=== PATIENT | male | born 1960 | race Caucasian/White ===

== ENCOUNTER 2020-04-14 07:54 | Outpatient (REF) | payer OTHER, SELFPAY | END 2020-04-14 07:55 | disposition home or self-care (01) | LOC: HO.LAB 07:54 | PROVIDERS: Visit Provider Internal Medicine | DX: Z20.822 Contact with and (suspected) exposure to COVID-19 (principal) | CPT/HCPCS: 36415; C9803; U0003 ==

== ENCOUNTER 2022-01-13 07:35 | Emergency (ER) | payer OTHER, SELFPAY ==
[2022-01-13 08:31] VITALS: BP 149/81; PULSE 106; RESP 20; TEMP 36.2; O2SAT 96; BMI 31.7
[2022-01-13 08:42] LABS: MANUAL DIFF FLAG NO
[2022-01-13 08:44] LABS: Basophils Percent Auto 0.5 % (0-2); Eosinophils Absolute Auto 0.1 X10*3/uL (0.0-0.4); Eosinophils Percent Auto 1.6 % (0-4); Hematocrit 41.6 % (42.0-52.0); Hemoglobin 14.6 g/dl (14.0-18.0); Imm Gran Abs Auto 0.02 X10*3/uL (0.00-0.03); Imm Gran Pct Auto 0.3 % (0.0-0.4); Lymphocytes Absolute Auto 1.7 X10*3/uL (1.2-4.9); Lymphocytes Percent Auto 20.7 % (20-40); Mean Corpuscular HGB Conc 35.1 g/dl (31.0-36.0); Mean Corpuscular Hemoglobin 29.4 pg (27.0-33.0); Mean Corpuscular Volume 83.7 fL (80.0-98.0); Mean Platelet Volume 10.5 fL (9.4-12.4); Monocytes Absolute Auto 0.5 X10*3/uL (0.1-1.2); Monocytes Percent Auto 6.5 % (2-11); Neutrophils Absolute Auto 5.6 x10*3/uL (2.0-8.3); Neutrophils Percent Auto 70.4 % (45-73); Platelet Count 212 X10*3/uL (160-400); Red Blood Count 4.97 X10*6/uL (4.60-5.80); Red Cell Distribution Width 11.7 % (11.0-16.0)
[2022-01-13 09:10] LABS: Alanine Aminotransferase 17 U/L (0-40); Albumin Level 4.2 g/dL (3.5-5.0); Alkaline Phosphatase 104 U/L (39-117); Anion Gap 17 (12-20); Aspartate Amino Transferase 13 U/L (5-37); Bilirubin Direct 0.2 mg/dL (0.0-0.5); Bilirubin Total 0.6 mg/dL (0.0-1.0); Blood Urea Nitrogen 13 mg/dL (9-16); Calcium 9.4 mg/dL (8.4-10.2); Carbon Dioxide 24 mmol/L (22-29); Chloride 99 mmol/L (96-108); Estimated Glomerular Filt Rate > 60; Glucose Random 372 mg/dL (60-115); Lipase 112 U/L (8-78); Potassium 4.8 mmol/L (3.3-5.1); Sodium 135 mmol/L (135-145)
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
--- OUTSIDE RECORDS SUMMARY | 2022-01-13 15:22 | XMS_ITS | Continuity of Care Document ---
:1960 Author Organization [facility] Address [address] [place] [address]- Care Team Providers Name Role Phone Angela Suero MD Primary Care Physician Encounter [facility] [place] Date(s): 06/11/19 - 06/18/[address] [address]- [facility] Attending Physician: Daniel Muñiz MD Allergies, Adverse Reactions, Alerts Substance Reaction Severity [...] Poly (PPV23) (oldterm)4 04/25/08 Given 1Admin Note: [id number] History: Pt states received flu vacine at [id number] Note: vis dmin Note: vis 10/16/06 Medications Admelog 100 units/mL injectable solution = 25 units, Subcutaneous Injection, 3 times a day before meals, label in Mauritian; 15 minutes before or immediately after a [...] 09/14/18 10:15:06 EDT, Route to Pharmacy Electronically, [id number], [facility]/pharmacy #[id number] Start Date: 09/14/18 Stop Date: 09/09/19 Status: [...] least 4 times a day; label in Mauritian, Compound Start Date: 08/29/18 Status: Orderedinsulin glargine 100 u/ml subcutaneous solution = 25 units, Subcutaneous Injection, Daily, for diabetes; label in Mauritian, # 10 mL, 11 Refills, Maintenance, 09/14/18 [...] Refills, Maintenance, Tablet, Route to Pharmacy Electronically, [id number], [facility]/pharmacy #[id number] Start Date: 09/14/18 Stop Date: 03/13/19 Status: Orderedlisinopril 30 mg oral tablet 1 tablet = 30 mg, By Mouth, Daily, please print in Mauritian, # 30 tablet, 5 Refills, Maintenance, 08/29/18 12:29:27 EDT, Tablet Start Date: 08/29/18 Status: OrderedmetFORMIN 1000 mg oral tablet 1 tablet = 1,000 mg, By Mouth, 2 times a day, # 60 tablet, 11 Refills, Maintenance, 09/14/18 10:22:45 EDT, Tablet Start Date: 09/14/18 Stop Date: 09/09/19 Status: Orderedmetoprolol 100 mg oral tablet, extended release 100 mg, 1, tablet, By Mouth, Daily, label in Mauritian; replaces 50 bid, # 30 tablet, Refills 11, Tot.Refills 11, Maintenance, 09/14/18 10:22:05 EDT, Route to Pharmacy Electronically, [id number], [facility]/pharmacy #[id number] Start Date: 09/14/18 Stop Date: 09/09/19 [...]
--- OUTSIDE RECORDS SUMMARY | 2022-01-13 15:22 | XMS_ITS | Continuity of Care Document ---
:1960 Author Organization [facility] Address [address] [place] [address]- Care Team Providers Name Role Account Support Associate Ck ISAACS Primary Care Physician Encounter [facility] [place] Date(s): 08/18/21 - 09/17/21 [facility] [address] [place] [address]- Attending Physician: Laurel Luna Admitting Physician: Laurel Luna Referring Physician: Laurel Luna Allergies, Adverse Reactions, Alerts No Known Allergies [...] History: Pt states received flu vacine at [id number] Note: [id number] Note: vis dmin Note: vis 10/16/06 Medications aspirin 81 mg oral delayed release tablet 81 mg, 1, tablet, By Mouth, Daily, # 90 tablet, Refills 0, Tot. Refills 0, Maintenance, 08/31/21 13:34:00 EDT, Route to Pharmacy Electronically, [facility], Partial fill upon patient request if the prescription is for a schedule II opi... Start Date: 08/31/21 Status: Orderedclopidogrel 75 mg oral tablet 75 mg, By Mouth, Daily, # 90 tablet, Refills 0, Tot. Refills 0, Maintenance, 08/31/21 13:34:00 EDT, Route to Pharmacy Electronically, [facility] 162, cm, 08/19/21 10:59:00 EDT, Height Start [...] 25 units, Subcutaneous Infusion, Daily, label in Tunisian; replaces vials, # 10 mL, 0 Refills, Maintenance, 08/31/21 13:34:00 EDT, [facility] Partial fill upon patient request if the prescription is for a schedule II opioid drug., 16... Start Date: 08/31/21 Status: OrderedLipitor 80 mg oral tablet 1 tablet = 80 mg, By Mouth, Daily at bedtime, # 90 tablet, 0 Refills, Maintenance, 08/31/21 13:34:00EDT, Tablet, [facility] 162, cm, 08/19/21 10:59:00 EDT, Height Start Date: 08/31/21 Status: Orderedlisinopril 30 mg oral tablet 1 tablet = 30 mg, By Mouth, Daily, please print in Tunisian, # 90 tablet, 0 Refills, Maintenance, 08/31/21 13:34:00 EDT, Tablet, [facility] 162, cm, 08/19/21 10:59:00 EDT, Height Start Date: 08/31/21 Status: OrderedmetFORMIN 1000 mg oral tablet 1 tablet = 1,000 mg, By Mouth, 2 times a day, due for labs. orders in the system., # 180 tablet, 0 Refills, Maintenance, 08/31/21 13:34:00 EDT, Tablet, [facility] 162, cm, 08/19/21 10:59:00 EDT, Height Start Date: 08/31/21 Status: Orderedmetoprolol 200 mg oral tablet, extended release 1 tablet = 200 mg, By Mouth, Daily, dose increase, # 30 tablet, 0 Refills, Maintenance, 08/31/21 13:34:00 EDT, ER Tablet, [facility] 162, cm, 08/19/21 10:59:00 EDT, [...] 0 Refills, Maintenance, 08/18/21 13:02:00 EDT, Tablet, [facility]/pharmacy #[id number], Partial fill... Start Date: 08/18/21 Status: OrderedPen [place], 31 G x 5 mm BD Ultra [...]
--- OUTSIDE RECORDS SUMMARY | 2022-01-13 15:22 | XMS_ITS | Continuity of Care Document ---
:1960 Author Organization [facility] Address [address] [place] [address]- Care Team Providers Name Role Phone Nimo ISAACS, Angela Primary Care Physician Encounter [facility] Date(s): 09/27/19 - 10/27/19 [facility]/[address] [address]- [facility] Allergies, Adverse Reactions, Alerts Substance Reaction Severity [...] Poly (PPV23) (oldterm)4 04/25/08 Given 1Admin Note: [id number] History: Pt states received flu vacine at [address] Note: vis dmin Note: vis 10/16/06 Medications Admelog 100 units/mL injectable solution = 25 units, Subcutaneous Injection, 3 times a day before meals, label in Slovak; 15 minutes before or immediately after a [...] 09/14/18 10:15:06 EDT, Route to Pharmacy Electronically, [id number], [facility]/pharmacy #[id number] Start Date: 09/14/18 Stop Date: 09/09/19 Status: OrderedFreestyle Tricia reader Freestyle Tricia reader, See Instructions, # 1 each, Refills 0, Tot. Refills 0, Maintenance, E11.65, 07/26/18 9:47:47 EDT, Compound Start Date: 07/26/18 Status: OrderedFreestyle Tricia Sensor 14 day Freestyle Tricia Sensor 14 day, See Instructions, # 2 each, Refills 11, Tot. Refills 11, Maintenance,apply one sensor every 14 days; check glucose qid;E11.65, 09/03/19 9:58:00 EDT, to read glucose at least 4 times a day; label in Slovak, Compound, 16... Start Date: 09/03/19 Status: Orderedinsulin glargine 100 u/ml subcutaneous solution = 25 units, Subcutaneous Injection, Daily, for diabetes; label in Slovak due for labs. orders in the system., # 10 mL, 2 Refills, Maintenance, 09/27/19 10:24:00 EDT, Injection, [facility]/pharmacy #[id number], 162, cm, 09/14/18 9:57:00 EDT, Height, 84.2, kg, ... Start Date: 09/27/19 Stop Date: 12/26/19 Status: OrderedInsulin Syringe, BD Ultra-Fine 0.3 cc [...] Refills, Maintenance, Tablet, Route to Pharmacy Electronically, [id number], [facility]/pharmacy #[id number] Start Date: 09/14/18 Stop Date: 03/13/19 Status: Orderedlisinopril 30 mg oral tablet 1 tablet = 30 mg, By Mouth, Daily, please print in Slovak, # 30 tablet, 5 Refills, Maintenance, 08/29/18 12:29:27 EDT, Tablet Start Date: 08/29/18 Status: OrderedmetFORMIN 1000 mg oral tablet 1 tablet = 1,000 mg, By Mouth, 2 times a day, due for labs. orders in the system., # 60 tablet, 2 Refills, Maintenance, 09/27/19 10:24:00 EDT, Tablet, [facility]/pharmacy #[id number], 162, cm, 09/14/18 9:57:00 EDT,Height, 84.2, kg, 08/27/18 14:11:00 EDT, Dry Weight Start Date: 09/27/19 Stop Date: 12/26/19 Status: Orderedmetoprolol 100 mg oral tablet, extended release 100 mg, 1, tablet, By Mouth, Daily, label in Slovak; replaces 50 bid due for labs. orders in the system., # 30 tablet, Refills 1, Tot. Refills 1, Maintenance, 09/27/19 10:24:00 EDT, Route to Pharmacy Electronically, [facility]/pharmacy #[id number], 162, cm, 08/20... Start Date: 09/27/19 Stop Date: 11/26/19 Status: OrderedNEO test strips SHARI test strips, See Instructions, # 25 each, Refills 11, Tot. Refills 11, Maintenance, For use withLibre meter; E11.65, 09/03/19 9:58:00 EDT, Compound, 162, cm, 09/14/18 9:57:00 EDT, Height, 84.2, kg, 08/27/18 14:11:00 EDT, Dry Weight Start Date: 09/03/19 Status: Ordered Problem List Condition Effective Dates [...]
--- OUTSIDE RECORDS SUMMARY | 2022-01-13 15:22 | XMS_ITS | Continuity of Care Document ---
:1960 Author Organization [facility] Address [address] [place] [address]- Care Team Providers Name Role Phone Nimo ISAACS, Angela Primary Care Physician Encounter [facility] [place] Date(s): 10/26/19 - 12/01/[address] [address]- [facility] Attending Physician: Not on Staff, Attending MD Referring Physician: Randall RIVERA, Audrey Ashby Allergies, Adverse Reactions, Alerts Substance Reaction Severity [...] Poly (PPV23) (oldterm)4 04/25/08 Given 1Admin Note: [id number] History: Pt states received flu vacine at [id number] Note: vis dmin Note: vis 10/16/06 Medications Admelog 100 units/mL injectable solution = 25 units, Subcutaneous Injection, 3 times a day before meals, label in Trinidadian; 15 minutes before or immediately after a [...] 09/14/18 10:15:06 EDT, Route to Pharmacy Electronically, [id number], [facility]/pharmacy #[id number] Start Date: 09/14/18 Stop Date: 09/09/19 Status: OrderedFreestyle Brice reader Freestyle Brice reader, See Instructions, # 1 each, Refills 0, Tot. Refills 0, Maintenance, E11.65, 07/26/18 9:47:47 EDT, Compound Start Date: 07/26/18 Status: OrderedFreestyle [place]ice Sensor 14 day Freestyle Brice Sensor 14 day, See Instructions, # 2 each, Refills 11, Tot. Refills 11, Maintenance,apply one sensor every 14 days; check glucose qid;E11.65, 09/03/19 9:58:00 EDT, to read glucose at least 4 times a day; label in Trinidadian, Compound, 16... Start Date: 09/03/19 Status: Orderedinsulin glargine 100 u/ml subcutaneous solution = 25 units, Subcutaneous Injection, Daily, for diabetes; label in Trinidadian due for labs. orders in the system., # 10 mL, 2 Refills, Maintenance, 09/27/19 10:24:00 EDT, Injection, [facility]/pharmacy #[id number], 162, cm, 09/14/18 9:57:00 EDT, Height, [...] Refills, Maintenance, Tablet, Route to Pharmacy Electronically, [id number], [facility]/pharmacy #[id number] Start Date: 09/14/18 Stop Date: 03/13/19 Status: Orderedlisinopril 30 mg oral tablet 1 tablet = 30 mg, By Mouth, Daily, please print in Trinidadian, # 30 tablet, 5 Refills, Maintenance, 08/29/18 12:29:27 EDT, Tablet Start Date: 08/29/18 Status: OrderedmetFORMIN 1000 mg oral tablet 1 tablet = 1,000 mg, By Mouth, 2 times a day, due for labs. orders in the system., # 60 tablet, 2 Refills, Maintenance, 09/27/19 10:24:00 EDT, Tablet, [facility]/pharmacy #[id number], 162, cm, 09/14/18 9:57:00 EDT,Height, 84.2, kg, 08/27/18 14:11:00 EDT, Dry Weight Start Date: 09/27/19 Stop Date: 12/26/19 Status: Orderedmetoprolol 100 mg oral tablet, extended release 100 mg, 1, tablet, By Mouth, Daily, label in Trinidadian; replaces 50 bid due for labs. orders in the system., # 30 tablet, Refills 1, Tot. Refills 1, Maintenance, 09/27/19 10:24:00 EDT, Route to Pharmacy Electronically, [facility]/pharmacy #[id number], 162, cm, 08/20... Start Date: 09/27/19 [...]
--- OUTSIDE RECORDS SUMMARY | 2022-01-13 15:22 | XMS_ITS | Continuity of Care Document ---
:1960 Author Organization [facility] Address [address] [place] [address]- Care Team Providers Name Role Utility PorterCk Beard MD Primary Care Physician [facility] Date[facility]): 11/19/20 - 12/19/[address] [address] Attending Physician: AdmLaurel richards Admitting Physician: AdmtrLaurel Referring Physician: Admtr, Ar8 Allergies, Adverse Reactions, Alerts Substance Reaction Severity Status NKA Active Immunizations Given and Recorded Vaccine Date Status Refusal Reason hepatitis B adult vaccine 08/17/18 Given hepatitis B adult vaccine 03/23/18 Given hepatitis B adult vaccine1 07/21/17 Given pneumococcal 23-valent vaccine 03/02/18 Recorded influenza virus vaccine, inactivated 03/02/18 Recorded influenza virus vaccine, inactivated 12/16/16 Given influenza virus vaccine, inactivated 02/26/16 Given influenza virus vaccine, inactivated2 02/04/14 Recorded tetanus/diphtheria/pertussis, acel(Tdap) 01/07/10 Given Influenza Inactive (IM) (oldterm)3 04/25/08 Given Pneumococcal Poly (PPV23) (oldterm)4 04/25/08 Given 1Admin Note: [id number] History: Pt states received flu vacine at [id number] Note: vis 4Admin Note: vis 10/16/06 Medications aspirin 81 mg oral delayed release tablet 81 mg, 1, tablet, By Mouth, Daily, # 90 tablet, Refills 3, Tot. Refills 3, Maintenance, 08/19/20 10:15:00 EDT, Route to Pharmacy Electronically, [facility]/pharmacy #[id number], Partial fill upon patient request ifthe prescription is for a schedule II opioid drug... Start Date: 08/19/20 Status: Orderedclopidogrel 75 mg oral tablet 75 mg, By Mouth, Daily, # 30 each, Refills 11, Tot. Refills 11, Maintenance, 12/15/20 17:46:00 EDT, Route to Pharmacy Electronically, [facility]/pharmacy #[id number], 162, cm, 09/14/18 9:57:00 EDT, Height, 84.2, kg, 08/27/18 14:11:00 EDT, Dry Weight Start Date: 12/15/20 Stop Date: 12/10/21 Status: OrderedFreestyle Tricia reader Freestyle Tricia reader, See Instructions, # 1 each, Refills 0, Tot. Refills 0, Maintenance, E11.65, 07/26/18 9:47:47 EDT, Compound Start Date: 07/26/18 Status: OrderedFreestyle Trciia Sensor 14 day Freestyle Tricia Sensor 14 day, See Instructions, # 2 each, Refills 11, Tot. Refills 11, Maintenance,apply one sensor every 14 days; check glucose qid;E11.65, 07/24/20 14:29:00 EDT, to read glucose at least 4 times a day; label in Ecuadorean, Compound, 1... Start Date: 07/24/20 Status: OrderedHumalog Kwik Pen 100 units/mL subcutaneous injection = 25 units, Subcutaneous Infusion, 3 times a day before meals, label i Ecuadorean; replaces Admlog; er insurtance requirement, # 24 mL, 11 Refills, Maintenance, 07/24/20 14:27:00 EDT, [facility]/pharmacy #[id number], Partial fill upon patient request if the prescript... Start Date: 07/24/20 Stop Date: 07/19/21 Status: Orderedinsulin glargine 100 u/ml subcutaneous solution = 25 units, Subcutaneous Injection, Daily, for diabetes; label in Ecuadorean due for labs. orders in the system., # 10 mL, 2 Refills, Maintenance, 12/26/19 10:24:00 EDT, Injection, [facility]/pharmacy #207, 162, cm, 09/14/18 9:57:00 EDT, Height, 84.2, kg, 06/... Start Date: 12/26/19 Stop Date: 03/25/20 Status: OrderedLantus Solostar Pen 100 units/mL subcutaneous solution = 25 units, Subcutaneous Infusion, Daily, label in Ecuadorean; replaces vials, # 12 mL, 11 Refills, Maintenance, 07/24/20 14:26:00 [id number] Partial fill upon patient request if the prescription is for a schedule II opioid drug., 162, cm,... Start Date: 07/24/20 Stop Date: 07/19/21 Status: OrderedLipitor 80 mg oral tablet 1 tablet = 80 mg, By Mouth, Daily at bedtime, # 30 tablet, 2 Refills, Maintenance, 08/19/20 9:26:00 EDT, [id number], cm, 09/14/18 9:57:00 EDT, Height, 84.2, kg, 08/27/18 14:11:00 EDT, Dry Weight Start Date: 08/19/20 Stop Date: 11/17/20 Status: Orderedlisinopril 30 mg oral tablet 1 tablet = 30 mg, By Mouth, Daily, please print in Ecuadorean, # 90 tablet, 3 Refills, Maintenance, 08/19/20 10:12:00 EDT, [facility]t, [facility], cm, 09/14/18 9:57:00 EDT, Height, 84.2, kg, 08/27/18 14:11:00 EDT, Dry Weight Start Date: 08/19/20 Status: OrderedmetFORMIN 1000 mg oral tablet 1 tablet = 1,000 mg, By Mouth, 2 times a day, due for labs. orders in the system., # 180 tablet, 3 Refills, Maintenance, 08/19/20 10:12:00 EDT, Tablet, [facility]/pharmacy #[id number], 162, cm, 09/14/18 9:57:00 EDT, Height, 84.2, kg, 08/27/18 14:11:00 EDT, Dry Weight Start Date: 08/19/20 Stop Date: 11/17/20 Status: Orderedmetoprolol 100 mg oral tablet, extended release 100 mg, 1, tablet, By Mouth, Daily, label in Ecuadorean, # 90 tablet, Refills 3, Tot. Refills 3, Maintenance, 08/19/20 10:12:00 EDT, Route to Pharmacy Electronically, [facility]/pharmacy #[id number], 162, cm, 199:57:00 EDT, Height, 84.2, kg, 08/27/18 14:11:00... Start Date: 08/19/20 Stop Date: 10/18/20 Status: OrderedNEO test strips SHARI test strips, See Instructions, # 25 each, Refills 11, Tot. Refills 11, Maintenance, For use withLibre meter; E11.65, 09/03/19 9:58:00 EDT, Compound, 162, cm, 09/14/18 9:57:00 EDT, Height, 84.2, kg, 08/27/18 14:11:00 EDT, Dry Weight Start Date: 09/03/19 Status: OrderedPen [place], 31 G x 5 mm BD Ultra Fine III See Instructions, # 150 each, Refills 11, Tot. Refills 11, Maintenance, E11.65 with insulin qid, 07/24/20 14:28:00 EDT, Supply, 162, cm, 09/14/18 9:57:00 EDT, Height, 84.2, kg, 08/27/18 14:11:00 EDT, Dry Weight Start Date: 07/24/20 Status: Ordered Problem List Condition Effective Dates [...]
--- OUTSIDE RECORDS SUMMARY | 2022-01-13 15:22 | XMS_ITS | Continuity of Care Document ---
:1960 Author Organization [facility] Address [address] [place] [address]- Care Team Providers Name Role Phone Angela Suero MD Primary Care Physician [facility]counter [facility] Date(s): 07/10/20 - 08/23/[address] [address]- Attending Physician: Not on Staff, Attending MD Allergies, Adverse Reactions, Alerts Substance Reaction [...] Poly (PPV23) (oldterm)4 04/25/08 Given 1Admin Note: [id number] History: Pt states received flu vacine at [id number] Note: vis dmin Note: vis 10/16/06 Medications aspirin 81 mg oral delayed release tablet 81 mg, 1, tablet, By Mouth, Daily, # 90 tablet, Refills 3, Tot. Refills 3, Maintenance, 08/19/20 10:15:00 EDT, Route to Pharmacy Electronically, [facility]/pharmacy #[id number], Partial fill upon patient request ifthe prescription is for a schedule II opioid drug... Start Date: 08/19/20 Status: Orderedclopidogrel 75 mg oral tablet 75 mg, By Mouth, Daily, for 30 days, # 30 each, Refills 11, Tot. Refills 11, Hard Stop 12/15/20 17:46:00 EDT, 12/21/19 17:46:00 EDT, Route to Pharmacy Electronically, [facility]/pharmacy #[id number], 162, cm, 09/14/18 9:57:00 EDT, Height, 84.2, kg, 08/27/18 14:11:... Start Date: 12/21/19 Stop Date: 12/15/20 Status: Orderedclopidogrel 75 mg oral tablet 75 mg, By Mouth, Daily, # 30 each, Refills 11, Tot. Refills 11, Maintenance, 12/15/20 17:46:00 EDT, Route to Pharmacy Electronically, [facility]/pharmacy #[id number], 162, cm, 09/14/18 9:57:00 [...] least 4 times a day; label in Barbadian, Compound, 1... Start Date: 07/24/20 Status: OrderedHumalog Kwik Pen 100 units/mL subcutaneous injection = 25 units, Subcutaneous Infusion, 3 times a day before meals, label i Barbadian; replaces Admlog; er insurtance requirement, # 24 mL, 11 Refills, Maintenance, 07/24/20 14:27:00 EDT, [facility]/pharmacy #[id number], Partial fill upon patient request if the prescript... Start Date: 07/24/20 Stop Date: 07/19/21 Status: Orderedinsulin glargine 100 u/ml subcutaneous solution = 25 units, Subcutaneous Injection, Daily, for diabetes; label in Barbadian due for labs. orders in the system., # 10 mL, 2 Refills, Maintenance, 12/26/19 10:24:00 EDT, Injection, [facility]/pharmacy #[id number], 162, cm, 09/14/18 9:57:00 EDT, Height, 84.2, kg, ... Start Date: 12/26/19 Stop Date: 03/25/20 Status: OrderedLantus Solostar Pen 100 units/mL subcutaneous solution = 25 units, Subcutaneous Infusion, Daily, label in Barbadian; replaces vials, # 12 mL, 11 Refills, Maintenance, 07/24/20 14:26:00 EDT, [facility]/pharmacy #[id number], Partial fill upon patient request if the prescription is for a schedule II opioid drug., 162, cm,... Start Date: 07/24/20 Stop Date: 07/19/21 Status: OrderedLipitor 80 mg oral tablet 1 tablet = 80 mg, By Mouth, Daily at bedtime, # 30 tablet, 2 Refills, Maintenance, 08/19/20 9:26:00 EDT, Tablet, [facility]/pharmacy #207, 162, cm, 09/14/18 9:57:00 EDT, Height, 84.2, kg, 08/27/18 14:11:00 EDT, Dry Weight Start Date: 08/19/20 Stop Date: 11/17/20 Status: Orderedlisinopril 30 mg oral tablet 1 tablet = 30 mg, By Mouth, Daily, please print in Barbadian, # 90 tablet, 3 Refills, Maintenance, 08/19/20 10:12:00 EDT, Tablet, [facility]/pharmacy #[id number], 162, cm, 09/14/18 9:57:00 EDT, Height, 84.2, kg, 08/27/18 14:11:00 EDT, Dry Weight Start Date: 08/19/20 Status: OrderedmetFORMIN 1000 mg oral tablet 1 tablet = 1,000 mg, By Mouth, 2 times a day, due for labs. orders in the system., # 180 tablet, 3 Refills, Maintenance, 08/19/20 10:12:00 EDT, Tablet, [facility]/pharmacy #[id number], 162, cm, 09/14/18 9:57:00 EDT, Height, 84.2, kg, 08/27/18 14:11:00 EDT, Dry Weight Start Date: 08/19/20 Stop Date: 11/17/20 Status: Orderedmetoprolol 100 mg oral tablet, extended release 100 mg, 1, tablet, By Mouth, Daily, label in Barbadian, # 90 tablet, Refills 3, Tot. Refills 3, Maintenance, 08/19/20 10:12:00 EDT, Route to Pharmacy Electronically, [facility]/pharmacy #[id number], 162, cm, 199:57:00 EDT, Height, 84.2, kg, 08/27/18 14:11:00... Start Date: 08/19/20 Stop Date: 10/18/20 Status: OrderedNEO test strips SHARI test strips, See Instructions, # 25 each, Refills 11, Tot. Refills 11, Maintenance, For use withLibre meter; E11.65, 09/03/19 9:58:00 EDT, Compound, 162, cm, 09/14/18 9:57:00 EDT, Height, 84.2, kg, 08/27/18 14:11:00 EDT, Dry Weight Start Date: 09/03/19 Status: OrderedPen [place], 31 G x 5 mm BD Ultra [...]
--- OUTSIDE RECORDS SUMMARY | 2022-01-13 15:22 | XMS_ITS | Continuity of Care Document ---
:1960 Author Organization [facility] Address [address] [place] [id number]- Care Team Providers Name Role Housing SpecialistCk Beard MD Primary Care Physician [facility] [facility] [place]): 10/03/21 - 11/12/[address] [address] Attending Physician: Danielle Ken MD Admitting Physician: Danielle Ken MD Referring Physician: Danielle Ken MD Allergies, Adverse Reactions, Alerts No Known [...] History: Pt states received flu vacine at [id number] Note: [id number] Note: vis dmin Note: vis 10/16/06 Medications aspirin 81 mg oral delayed release tablet 81 mg, 1, tablet, By Mouth, Daily, # 90 tablet, Refills 0, Tot. Refills 0, Maintenance, 08/31/21 13:34:00 EDT, Route to Pharmacy Electronically, [facility], Partial fill upon patient request if the prescription is for a schedule II opi... Start Date: 08/31/21 Status: Orderedclopidogrel 75 mg oral tablet 75 mg, By Mouth, Daily, # 90 tablet, Refills 0, Tot. Refills 0, Maintenance, 08/31/21 13:34:00 EDT, Route to Pharmacy Electronically, [facility] 162, cm, 08/19/21 10:59:00 EDT, Height [...] SITIO DE INYECCION, # 15 mL, 0Refills, 10/21/21 11:16:00 EDT, [facility] 162, cm, 08/19/21 10:59:00 EDT, Height Start Date: 10/21/21 Status: OrderedLipitor 80 mg oral tablet 1 tablet = 80 mg, By Mouth, Daily at bedtime, # 90 tablet, 0 Refills, Maintenance, 08/31/21 13:34:00EDT, Tablet, [facility] 162, cm, 08/19/21 10:59:00 EDT, Height Start Date: 08/31/21 Status: Orderedlisinopril 30 mg oral tablet 1 tablet = 30 mg, By Mouth, Daily, please print in Urdu, # 90 tablet, 0 Refills, Maintenance, 08/31/21 13:34:00 EDT, Tablet, [facility] 162, cm, 08/19/21 10:59:00 EDT, Height Start Date: 08/31/21 Status: OrderedmetFORMIN 1000 mg oral tablet 1 tablet = 1,000 mg, By Mouth, 2 times a day, due for labs. orders in the system., # 180 tablet, 0 Refills, Maintenance, 08/31/21 13:34:00 EDT, Tablet, [facility] 162, cm, 08/19/21 10:59:00 EDT, Height Start Date: 08/31/21 Status: Orderedmetoprolol 200 mg oral tablet, extended release 1 tablet = 200 mg, By Mouth, Daily, dose increase, # 30 tablet, 0 Refills, Maintenance, 10/21/21 12:46:00 EDT, ER Tablet, [facility] 162, cm, 08/19/21 10:59:00 EDT, Height Start Date: 10/21/21 Stop Date: 11/20/21 Status: OrderedNEO test strips SHARI test strips, [...] 0 Refills, Maintenance, 08/18/21 13:02:00 EDT, Tablet, [facility]/pharmacy #[id number], Partial fill... Start Date: 08/18/21 Status: OrderedPen [place], 31 G x 5 mm BD Ultra [...] Status Never smoker entered on: 04/10/14 Sex Care Team PersonnelName: Ck Beard MD Address: [address] [place] [address]
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
--- OUTSIDE RECORDS SUMMARY | 2022-01-13 15:22 | XMS_ITS | Continuity of Care Document ---
:1960 Author Organization [facility] Address [address] [place] [address]- Care Team Providers Name Role Phone Nimo ISAACS, Angela Primary Care Physician [facility]counter [facility] Date(s): 12/20/19 - 01/19/[address] [address] [facility] Allergies, Adverse Reactions, Alerts Substance Reaction Severity [...] Poly (PPV23) (oldterm)4 04/25/08 Given 1Admin Note: [id number] History: Pt states received flu vacine at [id number] Note: vis dmin Note: vis 10/16/06 Medications Admelog 100 units/mL injectable solution = 25 units, Subcutaneous Injection, 3 times a day before meals, label in Bahraini; 15 minutes before or immediately after a meal, # 20 mL, 11 Refills, Maintenance, 12/21/19 17:48:00 EDT, [facility]/pharmacy #[id number], Label in Avinash Rubio cm, 09/14/18 9:57:00... Start Date: 12/21/19 Stop Date: 12/15/20 Status: Orderedaspirin 81 mg oral tablet 1 tablet = 81 mg, By Mouth, Daily, # 90 tablet, 3 Refills, Maintenance, 09/14/18 10:18:47 EDT, Tablet Start Date: 09/14/18 Stop Date: 09/09/19 Status: Orderedclopidogrel 75 mg oral tablet 75 mg, By Mouth, Daily, # 30 each, Refills 11, Tot. Refills 11, Maintenance, 12/21/19 17:46:00 EDT, Route to Pharmacy Electronically, [facility]/pharmacy #[id number], 162, cm, 09/14/18 9:57:00 EDT, Height, 84.2, kg, 08/27/18 14:11:00 EDT, Dry Weight Start Date: 12/21/19 Stop Date: 12/15/20 Status: OrderedFreestyle Brice reader Freestyle Brice reader, [...] least 4 times a day; label in Bahraini, Compound, 16... Start Date: 09/03/19 Status: Orderedinsulin glargine 100 u/ml subcutaneous solution = 25 units, Subcutaneous Injection, Daily, for diabetes; label in Bahraini due for labs. orders in the system., # 10 mL, 2 Refills, Maintenance, 12/26/19 10:24:00 EDT, Injection, [facility]/pharmacy #[id number], 162, cm, 09/14/18 9:57:00 EDT, Height, 84.2, kg, ... Start Date: 12/26/19 Stop Date: 03/25/20 Status: OrderedInsulin Syringe, BD Ultra-Fine 0.3 cc [...] bedtime, # 30 tablet, 5 Refills, Maintenance, 12/21/19 17:46:00EDT, Tablet, [facility]/pharmacy #[id number], 162, cm, 09/14/18 9:57:00 EDT, Height, 84.2, kg, 08/27/18 14:11:00 EDT, Dry Weight Start Date: 12/21/19 Stop Date: 06/18/20 Status: Orderedlisinopril 30 mg oral tablet 1 tablet = 30 mg, By Mouth, Daily, please print in Bahraini, # 30 tablet, 5 Refills, Maintenance, 12/21/19 17:48:00 EDT, Tablet, [facility]/pharmacy #[id number], 162, cm, 09/14/18 9:57:00 EDT, Height, 84.2, kg, 08/27/18 14:11:00 EDT, Dry Weight Start Date: 12/21/19 Status: OrderedmetFORMIN 1000 mg oral tablet 1 tablet = 1,000 mg, By Mouth, 2 times a day, due for labs. orders in the system., # 60 tablet, 2 Refills, Maintenance, 12/21/19 17:43:00 EDT, Tablet, [facility]/pharmacy #[id number], 162, cm, 09/14/18 9:57:00 EDT,Height, 84.2, kg, 08/27/18 14:11:00 EDT, Dry Weight Start Date: 12/21/19 Stop Date: 03/20/20 Status: Orderedmetoprolol 100 mg oral tablet, extended release 100 mg, 1, tablet, By Mouth, Daily, label in Bahraini; replaces 50 bid due for labs. orders in the system., # 30 tablet, Refills 1, Tot. Refills 1, Maintenance, 09/27/19 10:24:00 EDT, Route to Pharmacy Electronically, [facility]/pharmacy #[id number], 162, cm, 08/20... Start Date: 09/27/19 Stop [...]
--- OUTSIDE RECORDS SUMMARY | 2022-01-13 15:22 | XMS_ITS | Continuity of Care Document ---
:1960 Author Organization [facility] Address [address] [place] [address]- Care Team Providers Name Role Phone Angela Suero MD Primary Care Physician Encounter [facility] Date(s): 06/11/19 - 06/21/[address] [address]- [facility] Attending Physician: Laurel Luna Admitting Physician: [...] Poly (PPV23) (oldterm)4 04/25/08 Given 1Admin Note: [id number] History: Pt states received flu vacine at [id number] Note: vis dmin Note: vis 10/16/06 Medications Admelog 100 units/mL injectable solution = 25 units, Subcutaneous Injection, 3 times a day before meals, label in Chinese; 15 minutes before or immediately after a [...] 09/14/18 10:15:06 EDT, Route to Pharmacy Electronically, [id number], [facility]/pharmacy #[id number] Start Date: 09/14/18 Stop Date: 09/09/19 Status: [...] least 4 times a day; label in Chinese, Compound Start Date: 08/29/18 Status: Orderedinsulin glargine 100 u/ml subcutaneous solution = 25 units, Subcutaneous Injection, Daily, for diabetes; label in Chinese, # 10 mL, 11 Refills, Maintenance, 09/14/18 [...] Refills, Maintenance, Tablet, Route to Pharmacy Electronically, [id number], [facility]/pharmacy #[id number] Start Date: 09/14/18 Stop Date: 03/13/19 Status: Orderedlisinopril 30 mg oral tablet 1 tablet = 30 mg, By Mouth, Daily, please print in Chinese, # 30 tablet, 5 Refills, Maintenance, 08/29/18 12:29:27 EDT, Tablet Start Date: 08/29/18 Status: OrderedmetFORMIN 1000 mg oral tablet 1 tablet = 1,000 mg, By Mouth, 2 times a day, # 60 tablet, 11 Refills, Maintenance, 09/14/18 10:22:45 EDT, Tablet Start Date: 09/14/18 Stop Date: 09/09/19 Status: Orderedmetoprolol 100 mg oral tablet, extended release 100 mg, 1, tablet, By Mouth, Daily, label in Chinese; replaces 50 bid, # 30 tablet, Refills 11, Tot.Refills 11, Maintenance, 09/14/18 10:22:05 EDT, Route to Pharmacy Electronically, [id number], [facility]/pharmacy #[id number] Start Date: 09/14/18 Stop Date: [...]
--- OUTSIDE RECORDS SUMMARY | 2022-01-13 15:22 | XMS_ITS | Continuity of Care Document ---
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 Refills 0, Maintenance, 08/31/21 13:34:00 EDT, Route to Pharmacy Electronically, [facility], Partial fill upon patient request if the prescription is for a schedule II opi... Start Date: 08/31/21 Status: Orderedclopidogrel 75 mg oral tablet 75 mg, By Mouth, Daily, # 90 tablet, Refills 0, Tot. Refills 0, Maintenance, 08/31/21 13:34:00 EDT, Route to Pharmacy Electronically, [facility]., 162, cm, 08/19/21 10:59:00 EDT, Height [...] SITIO DE INYECCION, # 15 mL, 0Refills, [facility], 162, cm, 08/19/21 10:59:00 EDT, Height Start Date: 09/23/21 Status: OrderedLantus Solostar Pen 100 units/mL subcutaneous solution = 25 units, Subcutaneous Infusion, Daily, label in Martiniquais; replaces vials, # 10 mL, 0 Refills, Maintenance, 08/31/21 13:34:00 EDT, [facility]., Partial fill upon patient request if the prescription is for a schedule II opioid drug., 16... Start Date: 08/31/21 Status: OrderedLipitor 80 mg oral tablet 1 tablet = 80 mg, By Mouth, Daily at bedtime, # 90 tablet, 0 Refills, Maintenance, 08/31/21 13:34:00EDT, Tablet, [facility] 162, cm, 08/19/21 10:59:00 EDT, Height Start Date: 08/31/21 Status: Orderedlisinopril 30 mg oral tablet 1 tablet = 30 mg, By Mouth, Daily, please print in Martiniquais, # 90 tablet, 0 Refills, Maintenance, 08/31/21 13:34:00 EDT, Tablet, [facility] 162, cm, 08/19/21 10:59:00 EDT, Height Start Date: 08/31/21 Status: OrderedmetFORMIN 1000 mg oral tablet 1 tablet = 1,000 mg, By Mouth, 2 times a day, due for labs. orders in the system., # 180 tablet, 0 Refills, Maintenance, 08/31/21 13:34:00 EDT, Tablet, [facility] 162, cm, 08/19/21 10:59:00 EDT, Height Start Date: 08/31/21 Status: Orderedmetoprolol 200 mg oral tablet, extended release 1 tablet = 200 mg, By Mouth, Daily, dose increase, # 30 tablet, 0 Refills, Maintenance, 08/31/21 13:34:00 EDT, ER Tablet, [facility] 162, cm, 08/19/21 10:59:00 EDT, [...] 0 Refills, Maintenance, 08/18/21 13:02:00 EDT, Tablet, [facility]/pharmacy #[id number], Partial fill... Start Date: 08/18/21 Status: OrderedPen [place], 31 G x 5 mm BD Ultra [...]
--- OUTSIDE RECORDS SUMMARY | 2022-01-13 15:22 | XMS_ITS | Continuity of Care Document ---
:1960 Author Organization [facility] Address [address] [place] [address]- Care Team Providers Name Role Phone Nimo ISAACS, Angela Primary Care Physician [facility] Date[facility]): 06/25/20 - 07/25/[address] [address]- Allergies, Adverse Reactions, Alerts Substance Reaction Severity [...] Poly (PPV23) (oldterm)4 04/25/08 Given 1Admin Note: [id number] History: Pt states received flu vacine at [id number] Note: vis dmin Note: vis 10/16/06 Medications aspirin 81 mg oral tablet 1 tablet = 81 mg, By Mouth, Daily, # 90 tablet, 3 Refills, Maintenance, 09/14/18 10:18:47 EDT, Tablet Start Date: 09/14/18 Stop Date: 09/09/19 Status: Orderedclopidogrel 75 mg oral tablet 75 mg, By Mouth, Daily, # 30 each, Refills 11, Tot. Refills 11, Maintenance, 12/21/19 17:46:00 EDT, Route to Pharmacy Electronically, [facility]/pharmacy #[id number], 162, cm, 09/14/18 9:57:00 EDT, Height, 84.2, kg, 08/27/18 14:11:00 EDT, Dry Weight Start Date: 12/21/19 Stop Date: 12/15/20 Status: OrderedFreestyle Tricia reader Freestyle Tricia reader, [...] least 4 times a day; label in Dutch, Compound, 1... Start Date: 07/24/20 Status: OrderedHumalog Kwik Pen 100 units/mL subcutaneous injection = 25 units, Subcutaneous Infusion, 3 times a day before meals, label i Dutch; replaces Admlog; er insurtance requirement, # 24 mL, 11 Refills, Maintenance, 07/24/20 14:27:00 EDT, [facility]/pharmacy #207, Partial fill upon patient request if the prescript... Start Date: 07/24/20 Stop Date: 07/19/21 Status: Orderedinsulin glargine 100 u/ml subcutaneous solution = 25 units, Subcutaneous Injection, Daily, for diabetes; label in Dutch due for labs. orders in the system., # 10 mL, 2 Refills, Maintenance, 12/26/19 10:24:00 EDT, Injection, [facility]/pharmacy #207, 162, cm, 09/14/18 9:57:00 EDT, Height, 84.2, kg, /... Start Date: 12/26/19 Stop Date: 03/25/20 Status: OrderedLantus Solostar Pen 100 units/mL subcutaneous solution = 25 units, Subcutaneous Infusion, Daily, label in Dutch; replaces vials, # 12 mL, 11 Refills, Maintenance, 07/24/20 14:26:00 EDT, [facility]/pharmacy #[id number], Partial fill upon patient request if the prescription is for a schedule II opioid drug., 162, cm,... Start Date: 07/24/20 Stop Date: 07/19/21 Status: OrderedLipitor 80 mg oral tablet 1 tablet = 80 mg, By Mouth, Daily at bedtime, # 30 tablet, 5 Refills, Maintenance, 12/21/19 17:46:00EDT, Tablet, [facility]/pharmacy #[id number], 162, cm, 09/14/18 9:57:00 EDT, Height, 84.2, kg, 08/27/18 14:11:00 EDT, Dry Weight Start Date: 12/21/19 Stop Date: 06/18/20 Status: Orderedlisinopril 30 mg oral tablet 1 tablet = 30 mg, By Mouth, Daily, please print in Dutch, # 30 tablet, 5 Refills, Maintenance, 12/21/19 17:48:00 EDT, Tablet, [facility]/pharmacy #[id number], 162, cm, 09/14/18 9:57:00 EDT, Height, 84.2, kg, 08/27/18 14:11:00 EDT, Dry Weight Start Date: 12/21/19 Status: OrderedmetFORMIN 1000 mg oral tablet 1 tablet = 1,000 mg, By Mouth, 2 times a day, due for labs. orders in the system., # 60 tablet, 2 Refills, Maintenance, 12/21/19 17:43:00 EDT, Tablet, [facility]/pharmacy #[id number], 162, cm, 09/14/18 9:57:00 EDT,Height, 84.2, kg, 08/27/18 14:11:00 EDT, Dry Weight Start Date: 12/21/19 Stop Date: 03/20/20 Status: Orderedmetoprolol 100 mg oral tablet, extended release 100 mg, 1, tablet, By Mouth, Daily, label in Dutch; replaces 50 bid due for labs. orders in the system., # 30 tablet, Refills 1, Tot. Refills 1, Maintenance, 09/27/19 10:24:00 EDT, Route to Pharmacy Electronically, [facility]/pharmacy #[id number], 162, cm, 08/20... Start Date: 09/27/19 Stop Date: 9/7/20 Status: OrderedNEO test strips SHARI test strips, See Instructions, # 25 each, Refills 11, Tot. Refills 11, Maintenance, For use withLibre meter; E11.65, 09/03/19 9:58:00 EDT, Compound, 162, cm, 09/14/18 9:57:00 EDT, Height, 84.2, kg, 08/27/18 14:11:00 EDT, Dry Weight Start Date: 09/03/19 Status: OrderedPen [place], 31 G x 5 mm BD Ultra [...]
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
--- OUTSIDE RECORDS SUMMARY | 2022-01-13 15:22 | XMS_ITS | Continuity of Care Document ---
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 Refills 3, Maintenance, 08/19/20 10:15:00 EDT, Route to Pharmacy Electronically, [facility]/pharmacy #[id number], Partial fill upon patient request ifthe prescription is for a schedule II opioid drug... Start Date: 08/19/20 Status: Orderedclopidogrel 75 mg oral tablet 75 mg, By Mouth, Daily, for 30 days, # 30 each, Refills 11, Tot. Refills 11, Hard Stop 12/15/20 17:46:00 EDT, 12/21/19 17:46:00 EDT, Route to Pharmacy Electronically, [facility]/pharmacy #[id number], 162, cm, 09/14/18 9:57:00 EDT, Height, 84.2, kg, 08/27/18 14:11:... Start Date: 12/21/19 Stop Date: 12/15/20 Status: Orderedclopidogrel 75 mg oral tablet 75 mg, By Mouth, Daily, # 30 each, Refills 11, Tot. Refills 11, Maintenance, 12/15/20 17:46:00 EDT, Route to Pharmacy Electronically, [facility]/pharmacy #[id number], 162, cm, 09/14/18 9:57:00 EDT, Height, [...] least 4 times a day; label in Mexican, Compound, 1... Start Date: 07/24/20 Status: OrderedHumalog Kwik Pen 100 units/mL subcutaneous injection = 25 units, Subcutaneous Infusion, 3 times a day before meals, label i Mexican; replaces Admlog; er insurtance requirement, # 24 mL, 11 Refills, Maintenance, 07/24/20 14:27:00 EDT, [facility]/pharmacy #[id number], Partial fill upon patient request if the prescript... Start Date: 07/24/20 Stop Date: 07/19/21 Status: Orderedinsulin glargine 100 u/ml subcutaneous solution = 25 units, Subcutaneous Injection, Daily, for diabetes; label in Mexican due for labs. orders in the system., # 10 mL, 2 Refills, Maintenance, 12/26/19 10:24:00 EDT, Injection, [facility]/pharmacy #[id number], 162, cm, 09/14/18 9:57:00 EDT, Height, 84.2, kg, ... Start Date: 12/26/19 Stop Date: 03/25/20 Status: OrderedLantus Solostar Pen 100 units/mL subcutaneous solution = 25 units, Subcutaneous Infusion, Daily, label in Mexican; replaces vials, # 12 mL, 11 Refills, Maintenance, 07/24/20 14:26:00 EDT, [facility]/pharmacy #[id number], Partial fill upon patient request if the prescription is for a schedule II opioid drug., 162, cm,... Start Date: 07/24/20 Stop Date: 07/19/21 Status: OrderedLipitor 80 mg oral tablet 1 tablet = 80 mg, By Mouth, Daily at bedtime, # 30 tablet, 2 Refills, Maintenance, 08/19/20 9:26:00 EDT, Tablet, [facility]/pharmacy #[id number], 162, cm, 09/14/18 9:57:00 EDT, Height, 84.2, kg, 08/27/18 14:11:00 EDT, Dry Weight Start Date: 08/19/20 Stop Date: 11/17/20 Status: Orderedlisinopril 30 mg oral tablet 1 tablet = 30 mg, By Mouth, Daily, please print in Mexican, # 90 tablet, 3 Refills, Maintenance, 08/19/20 10:12:00 EDT, Tablet, [facility]/pharmacy #[id number], 162, cm, 09/14/18 9:57:00 EDT, Height, 84.2, kg, 08/27/18 14:11:00 EDT, Dry Weight Start Date: 08/19/20 Status: OrderedmetFORMIN 1000 mg oral tablet 1 tablet = 1,000 mg, By Mouth, 2 times a day, due for labs. orders in the system., # 180 tablet, 3 Refills, Maintenance, 08/19/20 10:12:00 EDT, Tablet, [facility]/pharmacy #[id number], 162, cm, 09/14/18 9:57:00 EDT, Height, 84.2, kg, 08/27/18 14:11:00 EDT, Dry Weight Start Date: 08/19/20 Stop Date: 11/17/20 Status: Orderedmetoprolol 100 mg oral tablet, extended release 100 mg, 1, tablet, By Mouth, Daily, label in Mexican, # 90 tablet, Refills 3, Tot. Refills 3, Maintenance, 08/19/20 10:12:00 EDT, Route to Pharmacy Electronically, [facility]/pharmacy #[id number], 162, cm, 199:57:00 EDT, Height, 84.2, kg, 08/27/18 14:11:00... Start Date: 08/19/20 Stop Date: 10/18/20 Status: OrderedNEO test strips SHARI test strips, See Instructions, # 25 each, Refills 11, Tot. Refills 11, Maintenance, For use withLibre meter; E11.65, 09/03/19 9:58:00 EDT, Compound, 162, cm, 09/14/18 9:57:00 EDT, Height, 84.2, kg, 08/27/18 14:11:00 EDT, Dry Weight Start Date: 09/03/19 Status: OrderedPen [place], 31 G x 5 mm BD Ultra [...]
--- OUTSIDE RECORDS SUMMARY | 2022-01-13 15:22 | XMS_ITS | Continuity of Care Document ---
:1960 Author Organization [facility] Address [address] [place] [address]- Care Team Providers Name Role Phone Angela Suero MD Primary Care Physician [facility]): 11/[facility]/19 - 12/01/[address] [address]- [place] Attending Physician: Laurel Luna Admitting Physician: AdmLaurel [...] Poly (PPV23) (oldterm)4 04/25/08 Given 1Admin Note: [id number] History: Pt states received flu vacine at [id number] Note: vis dmin Note: vis 10/16/06 Medications Admelog 100 units/mL injectable solution = 25 units, Subcutaneous Injection, 3 times a day before meals, label in Rwandan; 15 minutes before or immediately after a [...] 09/14/18 10:15:06 EDT, Route to Pharmacy Electronically, [id number], [facility]/pharmacy #[id number] Start Date: 09/14/18 Stop Date: [...] least 4 times a day; label in Rwandan, Compound, 16... Start Date: 09/03/19 Status: Orderedinsulin glargine 100 u/ml subcutaneous solution = 25 units, Subcutaneous Injection, Daily, for diabetes; label in [place]andan due for labs. orders in the system., # 10 mL, 2 Refills, Maintenance, 09/27/19 10:24:00 EDT, Injection, [facility]/pharmacy #207, 162, cm, 09/14/18 9:57:00 EDT, Height, [...] Refills, Maintenance, Tablet, Route to Pharmacy Electronically, [id number], [facility]/pharmacy #207 Start Date: 09/14/18 Stop Date: 03/13/19 Status: Orderedlisinopril 30 mg oral tablet 1 tablet = 30 mg, By Mouth, Daily, please print in Rwandan, # 30 tablet, 5 Refills, Maintenance, 08/29/18 12:29:27 EDT, Tablet Start Date: 08/29/18 Status: OrderedmetFORMIN 1000 mg oral tablet 1 tablet = 1,000 mg, By Mouth, 2 times a day, due for labs. orders in the system., # 60 tablet, 2 Refills, Maintenance, 09/27/19 10:24:00 EDT, Tablet, [facility]/pharmacy #[id number], 162, cm, 09/14/18 9:57:00 EDT,Height, 84.2, kg, 08/27/18 14:11:00 EDT, Dry Weight Start Date: 09/27/19 Stop Date: 12/26/19 Status: Orderedmetoprolol 100 mg oral tablet, extended release 100 mg, 1, tablet, By Mouth, Daily, label in Rwandan; replaces 50 bid due for labs. orders in the system., # 30 tablet, Refills 1, Tot. Refills 1, Maintenance, 09/27/19 10:24:00 EDT, Route to Pharmacy Electronically, [facility]/pharmacy #[id number], 162, cm, 08/20... Start Date: [...]
--- OUTSIDE RECORDS SUMMARY | 2022-01-13 15:22 | XMS_ITS | Continuity of Care Document ---
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 Refills 1, Maintenance, 07/14/21 8:59:00 EDT, Route to Pharmacy Electronically, [facility]/pharmacy #207, Partial fill upon patient request if the prescription is for a schedule II opioid drug.... Start Date: 07/14/21 Status: Orderedclopidogrel 75 mg oral tablet 75 mg, By Mouth, Daily, # 90 tablet, Refills 1, Tot. Refills 1, Maintenance, 07/14/21 8:59:00 EDT, Route to Pharmacy Electronically, [facility]/pharmacy #[id number], 162, cm, 07/14/21 8:44:00 EDT, Height [...] least 4 times a day; label in Maltese, Compound, 162,... Start Date: 07/14/21 Status: OrderedLantus Solostar Pen 100 units/mL subcutaneous solution = 25 units, Subcutaneous Infusion, Daily, label in Maltese; replaces vials, # 10 mL, 5 Refills, Maintenance, 07/14/21 8:59:00 EDT, [facility]/pharmacy #207, Partial fill upon patient request if the prescription is for a schedule II opioid drug., 162, cm, 04... Start Date: 07/14/21 Status: OrderedLipitor 80 mg oral tablet 1 tablet = 80 mg, By Mouth, Daily at bedtime, # 90 tablet, 1 Refills, Maintenance, 07/14/21 8:59:00 EDT, Tablet, [facility]/pharmacy #[id number], 162, cm, 07/14/21 8:44:00 EDT, Height Start Date: 07/14/21 Status: Orderedlisinopril 30 mg oral tablet 1 tablet = 30 mg, By Mouth, Daily, please print in Maltese, # 90 tablet, 1 Refills, Maintenance, 07/14/21 8:59:00 EDT, Tablet, [facility]/pharmacy #[id number], 162, cm, 07/14/21 8:44:00 EDT, Height Start Date: 07/14/21 Status: OrderedmetFORMIN 1000 mg oral tablet 1 tablet = 1,000 mg, By Mouth, 2 times a day, due for labs. orders in the system., # 180 tablet, 1 Refills, Maintenance, 07/14/21 8:59:00 EDT, Tablet, [facility]/pharmacy #[id number], 162, cm, 07/14/21 8:44:00 EDT,Height Start Date: 07/14/21 Status: Orderedmetoprolol 100 mg oral tablet, extended release 100 mg, 1, tablet, By Mouth, Daily, label in Maltese, # 90 tablet, Refills 1, Tot. Refills 1, Maintenance, 07/14/21 8:59:00 EDT, [facility] 162, cm, 07/14/21 8:44:00 EDT, Height Start Date: 07/14/21 Status: OrderedNEO test strips SHARI test strips, See Instructions, # 25 each, Refills 11, Tot. Refills 11, Maintenance, For use withLibre meter; E11.65, 09/03/19 9:58:00 EDT, Compound, 162, cm, 09/14/18 9:57:00 EDT, Height, 84.2, kg, 08/27/18 14:11:00 EDT, Dry Weight Start Date: 09/03/19 Status: OrderedPen [place], 31 G x 5 mm BD Ultra [...]
--- OUTSIDE RECORDS SUMMARY | 2022-01-13 15:22 | XMS_ITS | Continuity of Care Document ---
:1960 Author Organization [facility] Address [address] [place] [address]- Care Team Providers Name Role Phone Nimo ISAACS, Angela Primary Care Physician Encounter [facility] Date(s): 07/24/20 - 08/23/[address] [address]- Attending Physician: Laurel Luna Admitting Physician: AdmLaurel [...] Poly (PPV23) (oldterm)4 04/25/08 Given 1Admin Note: [id number] History: Pt states received flu vacine at [id number] Note: vis 4Admin Note: vis 10/16/06 Medications aspirin 81 mg oral delayed release tablet 81 mg, 1, tablet, By Mouth, Daily, # 90 tablet, Refills 3, Tot. Refills 3, Maintenance, 08/19/20 10:15:00 EDT, Route to Pharmacy Electronically, [facility]/pharmacy #[id number], Partial fill upon patient request ifthe prescription is for a schedule II opioid drug... Start Date: 08/19/20 Status: Orderedclopidogrel 75 mg oral tablet 75 mg, By Mouth, Daily, for 30 days, # 30 each, Refills 11, Tot. Refills 11, Hard Stop 12/15/20 17:46:00 EDT, 12/21/19 17:46:00 EDT, Route to Pharmacy Electronically, [facility]/pharmacy #[id number], 162, cm, 09/14/18 9:57:00 EDT, Height, 84.2, kg, 08/27/18 14:11:... Start Date: 12/21/19 Stop Date: 12/15/20 Status: Orderedclopidogrel 75 mg oral tablet 75 mg, By Mouth, Daily, # 30 each, Refills 11, Tot. Refills 11, Maintenance, 12/15/20 17:46:00 EDT, Route to Pharmacy Electronically, [facility]/pharmacy #[id number], 162, cm, 09/14/18 9:57:00 EDT, Height, 84.2, kg, 08/27/18 14:11:00 EDT, Dry Weight Start Date: 12/15/20 Stop Date: 12/10/21 Status: OrderedFreestyle Brice reader Freestyle Brice reader, [...] least 4 times a day; label in Syrian, Compound, 1... Start Date: 07/24/20 Status: OrderedHumalog Kwik Pen 100 units/mL subcutaneous injection = 25 units, Subcutaneous Infusion, 3 times a day before meals, label i Syrian; replaces Admlog; er insurtance requirement, # 24 mL, 11 Refills, Maintenance, 07/24/20 14:27:00 EDT, [facility]/pharmacy #[id number], Partial fill upon patient request if the prescript... Start Date: 07/24/20 Stop Date: 07/19/21 Status: Orderedinsulin glargine 100 u/ml subcutaneous solution = 25 units, Subcutaneous Injection, Daily, for diabetes; label in Syrian due for labs. orders in the system., # 10 mL, 2 Refills, Maintenance, 12/26/19 10:24:00 EDT, Injection, [facility]/pharmacy #[id number], 162, cm, 09/14/18 9:57:00 EDT, Height, 84.2, kg, ... Start Date: 12/26/19 Stop Date: 03/25/20 Status: OrderedLantus Solostar Pen 100 units/mL subcutaneous solution = 25 units, Subcutaneous Infusion, Daily, label in Syrian; replaces vials, # 12 mL, 11 Refills, Maintenance, 07/24/20 14:26:00 EDT, [facility]/pharmacy #[id number], Partial fill upon patient request if the prescription is for a schedule II opioid drug., 162, cm,... Start Date: 07/24/20 Stop Date: 07/19/21 Status: OrderedLipitor 80 mg oral tablet 1 tablet = 80 mg, By Mouth, Daily at bedtime, # 30 tablet, 2 Refills, Maintenance, 08/19/20 9:26:00 EDT, Tablet, [facility]/pharmacy #[id number], 162, cm, 09/14/18 9:57:00 EDT, Height, 84.2, kg, 08/27/18 14:11:00 EDT, Dry Weight Start Date: 08/19/20 Stop Date: 11/17/20 Status: Orderedlisinopril 30 mg oral tablet 1 tablet = 30 mg, By Mouth, Daily, please print in Syrian, # 90 tablet, 3 Refills, Maintenance, 08/19/20 10:12:00 EDT, Tablet, [facility]/pharmacy #[id number], 162, cm, 09/14/18 9:57:00 EDT, Height, 84.2, kg, 08/27/18 14:11:00 EDT, Dry Weight Start Date: 08/19/20 Status: OrderedmetFORMIN 1000 mg oral tablet 1 tablet = 1,000 mg, By Mouth, 2 times a day, due for labs. orders in the system., # 180 tablet, 3 Refills, Maintenance, 08/19/20 10:12:00 EDT, Tablet, [facility]/pharmacy #[id number], 162, cm, 09/14/18 9:57:00 EDT, Height, 84.2, kg, 08/27/18 14:11:00 EDT, Dry Weight Start Date: 08/19/20 Stop Date: 11/17/20 Status: Orderedmetoprolol 100 mg oral tablet, extended release 100 mg, 1, tablet, By Mouth, Daily, label in Syrian, # 90 tablet, Refills 3, Tot. Refills 3, Maintenance, 08/19/20 10:12:00 EDT, Route to Pharmacy Electronically, [facility]/pharmacy #[id number], 162, cm, 199:57:00 EDT, Height, 84.2, kg, 08/27/18 14:11:00... Start Date: 08/19/20 Stop Date: 10/18/20 Status: OrderedNEO test strips SHARI test strips, See Instructions, # 25 each, Refills 11, Tot. Refills 11, Maintenance, For use withLibre meter; E11.65, 09/03/19 9:58:00 EDT, Compound, 162, cm, 09/14/18 9:57:00 EDT, Height, 84.2, kg, 08/27/18 14:11:00 EDT, Dry Weight Start Date: 09/03/19 Status: OrderedPen Lamar, 31 G x 5 mm BD Ultra [...]
--- OUTSIDE RECORDS SUMMARY | 2022-01-13 15:22 | XMS_ITS | Continuity of Care Document ---
:1960 Author Organization [facility] Address [address] [place] [address]- Care Team Providers Name Role Phone Angela Suero MD Primary Care Physician [place] [facility] [place] 03/26/19 - 04/05/[address] [address]- [facility] Attending Physician: Laurel Luna Admitting Physician: [...] Poly (PPV23) (oldterm)4 04/25/08 Given 1Admin Note: [id number] History: Pt states received flu vacine at [id number] Note: vis dmin Note: vis 10/16/06 Medications Admelog 100 units/mL injectable solution = 25 units, Subcutaneous Injection, 3 times a day before meals, label in Swedish; 15 minutes before or immediately after a [...] 09/14/18 10:15:06 EDT, Route to Pharmacy Electronically, [id number], [facility]/pharmacy #[id number] Start Date: 09/14/18 Stop Date: 09/09/19 Status: [...] least 4 times a day; label in Swedish, Compound Start Date: 08/29/18 Status: Orderedinsulin glargine 100 u/ml subcutaneous solution = 25 units, Subcutaneous Injection, Daily, for diabetes; label in Swedish, # 10 mL, 11 Refills, Maintenance, 09/14/18 10:19:59 EDT, Injection Start Date: 09/14/18 Stop Date: 09/09/19 Status: OrderedInsulin Syringe, BD Ultra-Fine 0.3 cc 31 G x 8 mm (5/16in) See Instructions, # 100 each, Refills 5, Tot. Refills 5, Maintenance, use as directed for Type 1 Diabetes Mellitus, dispense syringe with 1/2 unit scott, 09/14/18 10:19:45 EDT, Compound Start Date: 09/14/18 Stop Date: 03/13/19 Status: OrderedLipitor 80 mg oral tablet 1 tablet = 80 mg, By Mouth, Daily at bedtime, # 30 tablet, 5 Refills, Maintenance, Tablet, Route to Pharmacy Electronically, [id number], [facility]/pharmacy #[id number] Start Date: 09/14/18 Stop Date: 03/13/19 Status: Orderedlisinopril 30 mg oral tablet 1 tablet = 30 mg, By Mouth, Daily, please print in Swedish, # 30 tablet, 5 Refills, Maintenance, 08/29/18 12:29:27 EDT, Tablet Start Date: 08/29/18 Status: OrderedmetFORMIN 1000 mg oral tablet 1 tablet = 1,000 mg, By Mouth, 2 times a day, # 60 tablet, 11 Refills, Maintenance, 09/14/18 10:22:45 EDT, Tablet Start Date: 09/14/18 Stop Date: 09/09/19 Status: Orderedmetoprolol 100 mg oral tablet, extended release 100 mg, 1, tablet, By Mouth, Daily, label in Swedish; replaces 50 bid, # 30 tablet, Refills 11, Tot.Refills 11, Maintenance, 09/14/18 10:22:05 EDT, Route to Pharmacy Electronically, [id number], [facility]/pharmacy #[id number] Start Date: 09/14/18 Stop Date: [...]
--- OUTSIDE RECORDS SUMMARY | 2022-01-13 15:22 | XMS_ITS | Continuity of Care Document ---
:1960 Author Organization [facility] Address [address] [place] [address]- Care Team Providers Name Role Phone Angela Suero MD Primary Care Physician Encounter [facility] Date(s): 07/09/19 - 08/09/[address] [address]- [facility] Attending Physician: Luz Elena Galdamez MD Referring Physician: Carmen Blanchard NP Allergies, Adverse Reactions, Alerts Substance Reaction Severity [...] Poly (PPV23) (oldterm)4 04/25/08 Given 1Admin Note: [id number] History: Pt states received flu vacine at [id number] Note: vis dmin Note: vis 10/16/06 Medications Admelog 100 units/mL injectable solution = 25 units, Subcutaneous Injection, 3 times a day before meals, label in Kuwaiti; 15 minutes before or immediately after a [...] 09/14/18 10:15:06 EDT, Route to Pharmacy Electronically, [id number], [facility]/pharmacy #[id number] Start Date: 09/14/18 Stop Date: 09/09/19 Status: [...] least 4 times a day; label in Kuwaiti, Compound Start Date: 08/29/18 Status: Orderedinsulin glargine 100 u/ml subcutaneous solution = 25 units, Subcutaneous Injection, Daily, for diabetes; label in Kuwaiti, # 10 mL, 11 Refills, Maintenance, 09/14/18 [...] Refills, Maintenance, Tablet, Route to Pharmacy Electronically, [id number], [facility]/pharmacy #[id number] Start Date: 09/14/18 Stop Date: 03/13/19 Status: Orderedlisinopril 30 mg oral tablet 1 tablet = 30 mg, By Mouth, Daily, please print in Kuwaiti, # 30 tablet, 5 Refills, Maintenance, 08/29/18 12:29:27 EDT, Tablet Start Date: 08/29/18 Status: OrderedmetFORMIN 1000 mg oral tablet 1 tablet = 1,000 mg, By Mouth, 2 times a day, # 60 tablet, 11 Refills, Maintenance, 09/14/18 10:22:45 EDT, Tablet Start Date: 09/14/18 Stop Date: 09/09/19 Status: Orderedmetoprolol 100 mg oral tablet, extended release 100 mg, 1, tablet, By Mouth, Daily, label in Kuwaiti; replaces 50 bid, # 30 tablet, Refills 11, Tot.Refills 11, Maintenance, 09/14/18 10:22:05 EDT, Route to Pharmacy Electronically, [id number], [facility]/pharmacy #[id number] Start Date: 09/14/18 Stop Date: 09/09/19 Status: [...]
--- OUTSIDE RECORDS SUMMARY | 2022-01-13 15:22 | XMS_ITS | Continuity of Care Document ---
:1960 Author Organization [facility] Address [address] [place] [address]- Care Team Providers Name Role Silk Screen CutterCk lopes MD Primary Care Physician Encounter [facility] Date(s): 06/23/21 - 07/23/21 [facility] [address] [place] [address] [place] Allergies, Adverse Reactions, Alerts No Known Allergies [...] Poly (PPV23) (oldterm)4 04/25/08 Given 1Admin Note: [id number] History: Pt states received flu vacine at [id number] Note: vis 4Admin Note: vis 10/16/06 Medications aspirin 81 mg oral delayed release tablet 81 mg, 1, tablet, By Mouth, Daily, # 90 tablet, Refills 1, Tot. Refills 1, Maintenance, 07/14/21 8:59:00 EDT, Route to Pharmacy Electronically, [facility]/pharmacy #[id number], Partial fill upon patient request if the prescription is for a schedule II opioid drug.... Start Date: 07/14/21 Status: Orderedclopidogrel 75 mg oral tablet 75 mg, By Mouth, Daily, # 90 tablet, Refills 1, Tot. Refills 1, Maintenance, 07/14/21 8:59:00 EDT, Route to Pharmacy Electronically, [facility]/pharmacy #[id number], 162, cm, 07/14/21 8:44:00 EDT, Height Start [...] least 4 times a day; label in Finnish, Compound, 162,... Start Date: 07/14/21 Status: OrderedLantus Solostar Pen 100 units/mL subcutaneous solution = 25 units, Subcutaneous Infusion, Daily, label in Finnish; replaces vials, # 10 mL, 5 Refills, Maintenance, 07/14/21 8:59:00 EDT, [facility]/pharmacy #[id number], Partial fill upon patient request if the prescription is for a schedule II opioid drug., 162, cm, 04... Start Date: 07/14/21 Status: OrderedLipitor 80 mg oral tablet 1 tablet = 80 mg, By Mouth, Daily at bedtime, # 90 tablet, 1 Refills, Maintenance, 07/14/21 8:59:00 EDT, Tablet, [facility]/pharmacy #[id number], 162, cm, 07/14/21 8:44:00 EDT, Height Start Date: 07/14/21 Status: Orderedlisinopril 30 mg oral tablet 1 tablet = 30 mg, By Mouth, Daily, please print in Finnish, # 90 tablet, 1 Refills, Maintenance, 07/14/21 8:59:00 EDT, Tablet, [facility]/pharmacy #[id number], 162, cm, 07/14/21 8:44:00 EDT, Height Start Date: 07/14/21 Status: OrderedmetFORMIN 1000 mg oral tablet 1 tablet = 1,000 mg, By Mouth, 2 times a day, due for labs. orders in the system., # 180 tablet, 1 Refills, Maintenance, 07/14/21 8:59:00 EDT, Tablet, [facility]/pharmacy #[id number], 162, cm, 07/14/21 8:44:00 EDT,Height Start Date: 07/14/21 Status: Orderedmetoprolol 100 mg oral tablet, extended release 100 mg, 1, tablet, By Mouth, Daily, label in Finnish, # 90 tablet, Refills 1, Tot. Refills 1, Maintenance, 07/14/21 8:59:00 EDT, [id number] 162, cm, 07/14/21 8:44:00 EDT, Height Start Date: 07/14/21 Status: OrderedNEO test strips SHARI test strips, See Instructions, # 25 each, Refills 11, Tot. Refills 11, Maintenance, For use withLibre meter; E11.65, 09/03/19 9:58:00 EDT, Compound, 162, cm, 09/14/18 9:57:00 EDT, Height, 84.2, kg, 08/27/18 14:11:00 EDT, Dry Weight Start Date: 09/03/19 Status: OrderedPen Bryant, 31 G x 5 mm BD Ultra [...]
--- OUTSIDE RECORDS SUMMARY | 2022-01-13 15:23 | XMS_ITS | Continuity of Care Document ---
:1960 Author Organization [facility] Address [address] [place] [address]- Care Team Providers Name Role Phone Angela Suero MD Primary Care Physician Encounter [facility] [place] Date(s): 06/08/19 - 07/11/[address] [address]- [facility] Attending Physician: Daniel Muñiz MD Admitting Physician: Daniel Muñiz MD Allergies, Adverse Reactions, [...] Poly (PPV23) (oldterm)4 04/25/08 Given 1Admin Note: [id number] History: Pt states received flu vacine at [id number] Note: vis dmin Note: vis 10/16/06 Medications Admelog 100 units/mL injectable solution = 25 units, Subcutaneous Injection, 3 times a day before meals, label in Tanzanian; 15 minutes before or immediately after a [...] 09/14/18 10:15:06 EDT, Route to Pharmacy Electronically, [id number], [facility]/pharmacy #[id number] Start Date: 09/14/18 Stop Date: 09/09/19 Status: [...] least 4 times a day; label in Tanzanian, Compound Start Date: 08/29/18 Status: Orderedinsulin glargine 100 u/ml subcutaneous solution = 25 units, Subcutaneous Injection, Daily, for diabetes; label in Tanzanian, # 10 mL, 11 Refills, Maintenance, 09/14/18 [...] Refills, Maintenance, Tablet, Route to Pharmacy Electronically, [id number], [facility]/pharmacy #[id number] Start Date: 09/14/18 Stop Date: 03/13/19 Status: Orderedlisinopril 30 mg oral tablet 1 tablet = 30 mg, By Mouth, Daily, please print in Tanzanian, # 30 tablet, 5 Refills, Maintenance, 08/29/18 12:29:27 EDT, Tablet Start Date: 08/29/18 Status: OrderedmetFORMIN 1000 mg oral tablet 1 tablet = 1,000 mg, By Mouth, 2 times a day, # 60 tablet, 11 Refills, Maintenance, 09/14/18 10:22:45 EDT, Tablet Start Date: 09/14/18 Stop Date: 09/09/19 Status: Orderedmetoprolol 100 mg oral tablet, extended release 100 mg, 1, tablet, By Mouth, Daily, label in Tanzanian; replaces 50 bid, # 30 tablet, Refills 11, Tot.Refills 11, Maintenance, 09/14/18 10:22:05 EDT, Route to Pharmacy Electronically, [id number], [facility]/pharmacy #[id number] Start Date: 09/14/18 Stop [...]
--- OUTSIDE RECORDS SUMMARY | 2022-01-13 15:23 | XMS_ITS | Continuity of Care Document ---
:1960 Author Organization [facility] Address [address] [place] [address]- Care Team Providers Name Role Relationship Banker Ck ISAACS Primary Care Physician Encounter [facility] Date(s): 08/18/21 - 10/10/[address] [address] Attending Physician: Not on Staff, Attending MD Allergies, Adverse Reactions, Alerts No Known [...] History: Pt states received flu vacine at [id number] Note: [id number] Note: vis dmin Note: vis 10/16/06 Medications aspirin 81 mg oral delayed release tablet 81 mg, 1, tablet, By Mouth, Daily, # 90 tablet, Refills 0, Tot. Refills 0, Maintenance, 06/13/22 13:34:00 EDT, Route to Pharmacy Electronically, [facility], Partial fill upon patient request if the prescription is for a schedule II opi... Start Date: 08/31/21 Status: Orderedclopidogrel 75 mg oral tablet 75 mg, By Mouth, Daily, # 90 tablet, Refills 0, Tot. Refills 0, Maintenance, 08/31/21 13:34:00 EDT, Route to Pharmacy Electronically, [facility] 162, cm, 08/19/21 10:59:00 EDT, Height [...] SITIO DE INYECCION, # 15 mL, [facility], cm, 08/19/21 10:59:00 EDT, Height Start Date: 09/23/21 Status: OrderedLantus Solostar Pen 100 units/mL subcutaneous solution = 25 units, Subcutaneous Infusion, Daily, label in Cypriot; replaces vials, # 10 mL, 0 Refills, Maintenance, 08/31/21 13:34:00 EDT, [facility]., Partial fill upon patient request if the prescription is for a schedule II opioid drug., 16... Start Date: 08/31/21 Status: OrderedLipitor 80 mg oral tablet 1 tablet = 80 mg, By Mouth, Daily at bedtime, # 90 tablet, 0 Refills, Maintenance, 08/31/21 13:34:00EDT, Tablet, [facility]., 162, cm, 08/19/21 10:59:00 EDT, Height Start Date: 08/31/21 Status: Orderedlisinopril 30 mg oral tablet 1 tablet = 30 mg, By Mouth, Daily, please print in Cypriot, # 90 tablet, 0 Refills, Maintenance, 08/31/21 13:34:00 EDT, Tablet, [facility] 162, cm, 08/19/21 10:59:00 EDT, Height Start Date: 08/31/21 Status: OrderedmetFORMIN 1000 mg oral tablet 1 tablet = 1,000 mg, By Mouth, 2 times a day, due for labs. orders in the system., # 180 tablet, 0 Refills, Maintenance, 08/31/21 13:34:00 EDT, Tablet, [facility] 162, cm, 08/19/21 10:59:00 EDT, Height Start Date: 08/31/21 Status: Orderedmetoprolol 200 mg oral tablet, extended release 1 tablet = 200 mg, By Mouth, Daily, dose increase, # 30 tablet, 0 Refills, Maintenance, 08/31/21 13:34:00 EDT, [facility] 162, cm, 08/19/21 10:59:00 [...] 0 Refills, Maintenance, 08/18/21 13:02:00 EDT, Tablet, [facility]/pharmacy #[id number], Partial fill... Start Date: 08/18/21 Status: OrderedPen Daykin, 31 G x 5 mm BD Ultra [...]
--- OUTSIDE RECORDS SUMMARY | 2022-01-13 15:23 | XMS_ITS | Continuity of Care Document ---
:1960 Author Organization [facility] Address [address] [place] [address]- Care Team Providers Name Role Event Specialist Food Demonstrator Ck ISAACS Primary Care Physician Encounter [facility] Date(s): 07/14/21 - 09/12/[address] [address]- Attending Physician: Not on Staff, Attending MD [...] History: Pt states received flu vacine at [id number] Note: [id number] Note: vis dmin Note: vis 10/16/06 Medications aspirin 81 mg oral delayed release tablet 81 mg, 1, tablet, By Mouth, Daily, # 90 tablet, Refills 0, Tot. Refills 0, Maintenance, 08/31/21 13:34:00 EDT, Route to Pharmacy Electronically, [facility], Partial fill upon patient request if the prescription is for a schedule II opi... Start Date: 08/31/21 Status: Orderedclopidogrel 75 mg oral tablet 75 mg, By Mouth, Daily, # 90 tablet, Refills 0, Tot. Refills 0, Maintenance, 08/31/21 13:34:00 EDT, Route to Pharmacy Electronically, [facility], 162, cm, 08/19/21 10:59:00 EDT, [...] 25 units, Subcutaneous Infusion, Daily, label in Indian; replaces vials, # 10 mL, 0 Refills, Maintenance, 08/31/21 13:34:00 EDT, [facility] Partial fill upon patient request if the prescription is for a schedule II opioid drug., 16... Start Date: 08/31/21 Status: OrderedLipitor 80 mg oral tablet 1 tablet = 80 mg, By Mouth, Daily at bedtime, # 90 tablet, 0 Refills, Maintenance, 08/31/21 13:34:00EDT, Tablet[facility] 162, cm, 08/19/21 10:59:00 EDT, Height Start Date: 08/31/21 Status: Orderedlisinopril 30 mg oral tablet 1 tablet = 30 mg, By Mouth, Daily, please print in Indian, # 90 tablet, 0 Refills, Maintenance, 08/31/21 13:34:00 EDT, Tablet, [facility] 162, cm, 08/19/21 10:59:00 EDT, Height Start Date: 08/31/21 Status: OrderedmetFORMIN 1000 mg oral tablet 1 tablet = 1,000 mg, By Mouth, 2 times a day, due for labs. orders in the system., # 180 tablet, 0 Refills, Maintenance, 08/31/21 13:34:00 EDT, Tablet, [facility] 162, cm, 08/19/21 10:59:00 EDT, Height Start Date: 08/31/21 Status: Orderedmetoprolol 200 mg oral tablet, extended release 1 tablet = 200 mg, By Mouth, Daily, dose increase, # 30 tablet, 0 Refills, Maintenance, 08/31/21 13:34:00 EDT, ER Tablet, [facility] 162, cm, 08/19/21 10:59:00 [...] 0 Refills, Maintenance, 08/18/21 13:02:00 EDT, Tablet, [id number], Partial fill... Start Date: 08/18/21 Status: OrderedPen [place], 31 G x 5 mm BD Ultra [...]
== END 2022-01-13 15:32 | disposition left against medical advice (07) ==
PROVIDERS: Emergency Provider Emergency Medicine
DX: R10.30 Lower abdominal pain, unspecified (principal)
CPT/HCPCS: 36415; 80048; 80076; 83690; 85025; 99281; 99283

== ENCOUNTER 2022-01-18 08:10 | Emergency (ER) | payer OTHER, SELFPAY ==
[2022-01-18 08:12] VITALS: BP 184/89; PULSE 100; RESP 19; TEMP 36.6; O2SAT 98; BMI 30.9
[2022-01-18 11:50] VITALS: BP 174/89; PULSE 108; RESP 18; TEMP 36.6; O2SAT 98
[2022-01-18 15:50] LABS: MANUAL DIFF FLAG NO
[2022-01-18 16:00] LABS: Basophils Percent Auto 0.2 % (0-2); Eosinophils Percent Auto 0.2 % (0-4); Hematocrit 42.9 % (42.0-52.0); Hemoglobin 15.2 g/dl (14.0-18.0); Imm Gran Abs Auto 0.04 X10*3/uL (0.00-0.03); Imm Gran Pct Auto 0.3 % (0.0-0.4); Lymphocytes Absolute Auto 1.6 X10*3/uL (1.2-4.9); Lymphocytes Percent Auto 12.4 % (20-40); Mean Corpuscular HGB Conc 35.4 g/dl (31.0-36.0); Mean Corpuscular Hemoglobin 29.6 pg (27.0-33.0); Mean Corpuscular Volume 83.6 fL (80.0-98.0); Mean Platelet Volume 10.6 fL (9.4-12.4); Monocytes Absolute Auto 0.8 X10*3/uL (0.1-1.2); Monocytes Percent Auto 6.2 % (2-11); Neutrophils Absolute Auto 10.2 x10*3/uL (2.0-8.3); Neutrophils Percent Auto 80.7 % (45-73); Platelet Count 292 X10*3/uL (160-400); Red Blood Count 5.13 X10*6/uL (4.60-5.80); Red Cell Distribution Width 11.6 % (11.0-16.0); White Blood Count 12.6 X10*3/uL (4.8-10.8)
[2022-01-18 16:07] LABS: Alanine Aminotransferase 19 U/L (0-40); Albumin Level 4.5 g/dL (3.5-5.0); Alkaline Phosphatase 107 U/L (39-117); Anion Gap 20 (12-20); Aspartate Amino Transferase 12 U/L (5-37); Bilirubin Direct 0.2 mg/dL (0.0-0.5); Bilirubin Total 0.4 mg/dL (0.0-1.0); Blood Urea Nitrogen 13 mg/dL (9-16); Calcium 9.8 mg/dL (8.4-10.2); Carbon Dioxide 24 mmol/L (22-29); Chloride 94 mmol/L (96-108); Estimated Glomerular Filt Rate > 60; Glucose Random 325 mg/dL (60-115); Lipase 49 U/L (8-78); Sodium 133 mmol/L (135-145); Total Protein 7.5 g/dL (6.5-8.0)
== END 2022-01-18 20:02 | disposition left against medical advice (07) ==
PROVIDERS: Emergency Provider Emergency Medicine
DX: M54.2 Cervicalgia (principal); R10.9 Unspecified abdominal pain; Z79.899 Other long term (current) drug therapy
CPT/HCPCS: 36415; 80048; 80076; 83690; 85025; 99281; 99283

== ENCOUNTER 2022-12-28 11:01 | Emergency (ER) | payer OTHER, SELFPAY ==
[2022-12-28 11:50] VITALS: BP 141/84; PULSE 91; RESP 18; TEMP 35.6; O2SAT 97; BMI 29.6
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
--- NOTE | 2022-12-28 14:57 | PC.NURSE ---
pt medicated for per MAY for 10/28 neck/back pain, lidocaine patch applied to lower back.
[2022-12-28 15:30] VITALS: BP 140/82; PULSE 89; RESP 19; TEMP 36.5; O2SAT 97
== END 2022-12-28 15:54 | disposition home or self-care (01) ==
PROVIDERS: Emergency Provider Emergency Medicine Emergency Medical Services
DX: S13.4XXA Sprain of ligaments of cervical spine, initial encounter (principal); S33.5XXA Sprain of ligaments of lumbar spine, initial encounter; M54.2 Cervicalgia; M54.50 Low back pain, unspecified; M25.552 Pain in left hip; V43.52XA Car driver injured in collision with other type car in traffic accident, initial encounter; Y93.9 Activity, unspecified; Y92.410 Unspecified street and highway as the place of occurrence of the external cause; Y99.9 Unspecified external cause status
CPT/HCPCS: 72040; 72100; 73502; 99283; 99284